=== PATIENT | male | born 1990 | race Two or more races ===

== ENCOUNTER 2025-05-26 21:30 | Emergency (ER) | payer MEDICAID, SELFPAY ==
--- NOTE | 2025-05-26 22:03 | XR_ITS ---
Examination: AP lateral soft tissue neck 2 views TECHNIQUE: AP lateral soft tissue neck 2 views Date and time: May 26, 2000 2510 0 5:00 PM INDICATIONS: Food stuck in the throat 30 minutes ago. FINDINGS: Normal epiglottis No opaque foreign body No distention hypopharynx IMPRESSION: No opaque foreign body
[2025-05-26 22:29] VITALS: BP 121/77; PULSE 106; RESP 19; TEMP 36.8; O2SAT 99
--- NOTE | 2025-05-26 23:26 | PD.EDNV ---
Nausea/Vomit./Diarrhea-RME/HPI General Chief complaint: General Adult/Misc Complain Stated complaint: THINKS PORK MEAT STUCKED IN HIS THROAT Time Seen by Provider: 05/26/25 22:55 Arrival date/time: 05/26/25 21:30 35M with no significant PMH presents to ED with sensation of pork meat in esophagus. Patient was unable to swallow or pass PO fluids. While waiting in ED, patient states sensation disappeared. Limitations: no limitations Related Data Allergies Allergy/AdvReac Type Severity Reaction Status Date / Time No Known Allergies Allergy Verified 05/26/25 21:34 Review of Systems Review of Systems Systems Reviewed: All systems reviewed, normal except as documented Constitutional Constitutional: Reports system reviewed and no additional complaints, except as documented, Denies fever(s) and Denies headache(s) ENT Ears, Nose, Mouth, and Throat: Denies disequilibrium and Denies headache(s) Cardiovascular Cardiovascular: Reports system reviewed and no additional complaints, except as documented, Denies chest pain and Denies dyspnea Respiratory Respiratory: Reports system reviewed and no additional complaints, except as documented, Denies cough and Denies dyspnea Gastrointestinal Gastrointestinal: Reports system reviewed and no additional complaints, except as documented, Denies abdominal pain, Denies nausea and Denies vomiting Neurologic Neurologic: Reports system reviewed and no additional complaints, except as documented, Denies confusion, Denies disequilibrium and Denies headache(s) Psychiatric Psychiatric: Denies confusion Past Medical History Social History SMOKING STATUS: Never smoker ED Exam General Limitations: Present no limitations General appearance: Present alert and in no apparent distress Head Head exam: Present atraumatic Eye Eye exam: Present normal appearance, PERRL and EOMI ENT ENT exam: Present normal exam, normal oropharynx and mucous membranes moist Neck Neck exam: Present normal inspection, full ROM and trachea midline Chest Chest inspection: Present normal inspection and symmetric chest wall rise Respiratory Respiratory exam: Present normal lung sounds bilaterally Cardiovascular Cardiovascular exam: Present regular rate, normal rhythm and normal heart sounds Abdominal Exam Abdominal exam: Present soft and normal bowel sounds Extremities Exam Extremities exam: Present normal inspection and full ROM Back Exam Back exam: Present normal inspection and full ROM Neurological Exam Neurological exam: Present alert, oriented X3 and CN II-XII intact Psychiatric Psychiatric exam: Present normal affect and normal mood Skin Skin exam: Present warm, dry, intact and normal color Course Quality Measures none Orders Category Date Time Status XR soft tissue neck Stat Exams 05/26/25 22:03 Completed Vital Signs Vital signs: Vital Signs Temperature 98.2 F 05/26/25 22:29 Pulse Rate 106 H 05/26/25 22:29 Respiratory Rate 19 05/26/25 22:29 Blood Pressure 121/77 05/26/25 22:29 Pulse Oximetry (%) 99 05/26/25 22:29 Oxygen Delivery Method Room Air 05/26/25 22:29 O2 at 99% on RA and WNLs Nausea/Vomiting/Diarrhea MDM Narrative MDM Narrative:: 35M with no significant PMH presents to ED with sensation of pork meat in esophagus. Patient was unable to swallow or pass PO fluids. While waiting in ED, patient states sensation disappeared. Physical exam reveals normal speech. Normal WOB. Patient is afebrile, calm, and alert. XR unremarkable. PO challenge passed. Patient likely passed food bolus. Char Conveyor T[employer] Cellar given. Patient data External records reviewed:: [facility] previous records Clinical information provided by:: patient Social determinants that could affect healthcare access:: none Patient has the following chronic illnesses:: none How is presenting disease/condition affected by chronic disease/condition?: no chronic disease Evaluation data The following diagnostics were reviewed and interpreted by me:: radiology exam(s) Lab and/or radiology exams considered but not ordered:: ordered Interpretation Summary: above Medications / Prescriptions Medications / Prescriptions considered but not ordered:: not ordered Medication administrations:: n/a Consultations Consultation(s) initiated? (list below): No Diagnosis Nausea Differential Diagnosis: traveler's diarrhea, food poisoning, gastroenteritis, clostridium difficile infection, drug-induced nausea and vomiting, dehydration and other (sensation of BH in esophagus) Most likely diagnosis given after review of the tests above:: sensation of BH in esophagus Admission Indicated Admission indicated?: not indicated Admission Request Was there a request for admission?: No Disposition Plan Disposition Plan: Discharge Discharge Attestation Discharge Attestation: The patient and all family members were given an opportunity to ask questions and understood the discharge instructions. Discharge instructions specifically effects, indications for sooner follow up or return to the emergency department, and the expected course of current diagnosis. Patient condition: Stable Discharge Plan Plan Patient Disposition: HOME (Self Care) Discharge Disposition comment: Stable Prescriptions/Referrals Referrals: No Primary/Family,Physician [Primary Care Provider] - In 1 week Problem List Clinical Impression: Sensation of foreign body in esophagus Patient/Caregiver Discharge Instructions Education Materials: ED Foreign Body Esophageal Rslv Additional Instructions: Please follow-up with PCP within 24-48 hours and return immediately if symptoms worsen. If it happens again, may need referral to GI for EGD. Print Language: Luxembourgish Stand Alone Forms: Patient Portal Info Letter PA/[employer] Supervising Physician PA/[employer] Supervising Physician: Dr. Rand
== END 2025-05-26 23:35 | disposition home or self-care (01) ==
PROVIDERS: Emergency Provider Emergency Medicine
DX: R09.A2 Foreign body sensation, throat (principal)
CPT/HCPCS: 70360; 99283